=== PATIENT | male | born 1965 | race Caucasian/White ===

== ENCOUNTER 2016-09-26 16:45 | Outpatient (CLI) | payer BC ==
[2016-09-26 17:15] LABS: ALT (SGPT) 32 U/L (0-55); AST (SGOT) 27 U/L (5-34); Alkaline Phosphatase 41 U/L (40-150); Anion Gap 17 mmol/L (10-20); BUN (Urea Nitrogen) 15 mg/dL (8.4-25.7); Bilirubin, Total 0.4 mg/dL (0.2-1.2); Calc. Creatinine Clearance 0 mL/min (70-130); Calcium 9.5 mg/dL (7.8-10.44); Carbon Dioxide 25 mmol/L (22-29); Chloride 103 mmol/L (98-107); Estimated GFR-MDRD Greater than 90; Hemoglobin A1c 5.5 % (4.0-6.0); Protein, Total 7.4 g/dL (6.0-8.3)
== END 2016-09-26 16:46 | disposition home or self-care (01) ==
LOC: NAV SJFMSP 16:45
PROVIDERS: ATTEND Family Medicine
DX: Z11.59 Encounter for screening for other viral diseases (principal); E78.5 Hyperlipidemia, unspecified; I10 Essential (primary) hypertension
CPT/HCPCS: 80053; 80074; 83036